=== PATIENT | male | born 1950 | race Caucasian/White ===

== ENCOUNTER 2020-08-25 15:29 | Inpatient (IN) ==
[2020-08-26] MEDS ORDERED: Albuterol 2.5 MG/3 ML NEBULIZER AER PRN (20:09)
[2020-08-26] MEDS ORDERED: Ipratropium/Albuterol Neb 3 ML IH PRN (20:09)
[2020-08-26] MEDS ORDERED: Dextrose Gel 15 GM/37.5 ML TUBE PO PRN ×2 (20:11)
[2020-08-26] MEDS ORDERED: D5% in Water 1,000 ML IVC PRN (20:11)
[2020-08-26] MEDS ORDERED: *HR* Dextrose 50 % in Water (Vial) 50 ML VIAL IVP PRN (20:11)
[2020-08-26] MEDS ORDERED: Mirtazapine 15 MG TABLET PO SCH (21:00)
[2020-08-26] MEDS: Ipratropium/Albuterol Neb 3 ML IH SCH (21:14)
[2020-08-26] MEDS: Budesonide/Formoterol 160/4.5 1 PUFF INH IH SCH (21:26)
[2020-08-26] MEDS: Benzonatate 100 MG CAPSULE PO SCH (22:28)
[2020-08-26] MEDS: Insulin LISPRO 300 UNITS/3 ML VIAL SUBQ SCH (22:30)
[2020-08-27] MEDS: Chloraseptic Spray 177 ML BOTTLE MM PRN (00:50)
[2020-08-27 06:09] LABS: Basophils % 0.1 %; Eosinophils % 0.1 %; Hematocrit 24.2 % (35.3-44.9); Hemoglobin 7.8 g/dL (11.5-15.4); Immature Granulocytes % 4.3 % (0-4); Lymphocytes % 0.4 %; Mean Corpuscular HGB Conc 32.2 g/dL (31.6-35.5); Mean Corpuscular Hemoglobin 28.8 pg (28.0-33.3); Mean Corpuscular Volume 89.3 fL (83.0-100.0); Mean Platelet Volume 11.5 fL (9.4-12.4); Monocytes # 0.2 K/mcL (0.0-1.3); Monocytes % 2.5 %; Platelet Count 159 K/mcL (140-400); Red Blood Count 2.71 M/mcL (3.82-4.97); Segmented Neutrophils % 92.6 %; White Blood Count 9.7 K/mcL (4.3-11.1)
[2020-08-27 06:34] LABS: Alanine Aminotransferase 18 Units/L (7-52); Albumin 2.5 g/dL (3.5-5.7); Albumin/Globulin Ratio 1.1 (1.1-2.2); Alkaline Phosphatase 66 Units/L (34-104); Aspartate Amino Transferase 9 Units/L (13-39); BUN/Creatinine Ratio 26 (6-26); Bilirubin,Total 0.4 mg/dL (0.3-1.0); Blood Urea Nitrogen 21 mg/dL (8-23); Calcium 9.3 mg/dL (8.6-10.3); Carbon Dioxide 25 mEq/L (23-29); Chloride 99 mEq/L (98-107); Globulin 2.3 g/dL (2.4-3.5); Glucose 164 mg/dL (70-105); Osmolality,Calculated 277 (280-300); Potassium 4.4 mEq/L (3.5-5.1); Sodium 130 mEq/L (136-145); Total Protein 4.8 g/dL (6.4-8.9); eGFR For African Americans > 60 (> 60); eGFR For Non-African Americans > 60 (> 60)
[2020-08-27] MEDS: *HR* Enoxaparin 40 MG/0.4 ML SYRINGE SQ SCH (06:55)
[2020-08-27] MEDS: Insulin LISPRO 300 UNITS/3 ML VIAL SUBQ SCH ×4 (08:22→21:42)
[2020-08-27] MEDS: Aspirin Enteric Coated 81 MG Tablet PO SCH (08:24)
[2020-08-27] MEDS: Ascorbic Acid 500 MG TABLET PO SCH (08:24)
[2020-08-27] MEDS: Benzonatate 100 MG CAPSULE PO SCH ×3 (08:25→20:01)
[2020-08-27] MEDS: polyethylene glycoL 3350 17 GM POWD.PACK PO SCH (08:25)
[2020-08-27] MEDS: allopurinoL 300 MG TABLET PO SCH (08:25)
[2020-08-27] MEDS: Folic Acid 1 MG TABLET PO SCH (08:25)
[2020-08-27] MEDS: Sennosides/Docusate Sodium TABLET PO SCH (08:25)
[2020-08-27] MEDS: Budesonide/Formoterol 160/4.5 1 PUFF INH IH SCH ×2 (08:25→22:00)
[2020-08-27] MEDS: predniSONE 20 MG TABLET PO SCH (08:25)
[2020-08-27] MEDS: Cyanocobalamin (B-12) 1,000 MCG TABLET PO SCH (08:25)
[2020-08-27] MEDS: Iron Polysaccharide Complex 150 MG CAPSULE PO SCH (08:25)
[2020-08-27] MEDS: Ipratropium/Albuterol Neb 3 ML IH SCH (08:37)
[2020-08-27] MEDS ORDERED: GlipiZIDE 5 MG TABLET PO SCH (09:00)
[2020-08-27] MEDS ORDERED: calcitrioL 0.25 MCG CAPSULE PO SCH (09:00)
[2020-08-27] MEDS ORDERED: Metoprolol XL (24 HR) Succ 50 MG TAB.ER.24H PO SCH (09:00)
[2020-08-27] MEDS ORDERED: DilTIAZem CD (24hr) 120 MG CAP.ER.24H PO SCH (09:00)
[2020-08-27] MEDS: Spironolactone 25 MG TABLET PO SCH (16:19)
[2020-08-27] MEDS ORDERED: lisinopriL 20 MG TABLET PO SCH (18:00)
[2020-08-27 19:38] LABS: Adenovirus Not Detected (Not Detect); Coronavirus 229E Not Detected (Not Detect); Coronavirus HKU1 Not Detected (Not Detect); Coronavirus NL63 Not Detected (Not Detect); Coronavirus OC43 Not Detected (Not Detect); Human Metapneumovirus Not Detected (Not Detect); Human Rhinovirus/Enterovirus Not Detected (Not Detect); Influenza A Subtype 2009 H1 Not Detected (Not Detect); Influenza B Not Detected (Not Detect); Parainfluenza Virus 1 Not Detected (Not Detect); Parainfluenza Virus 2 Not Detected (Not Detect); Parainfluenza Virus 3 Not Detected (Not Detect); Parainfluenza Virus 4 Not Detected (Not Detect)
[2020-08-27 19:39] LABS: Bordetella Pertussis Not Detected (Not Detect); Chlamydophila pneumoniae Not Detected (Not Detect); Mycoplasma pneumoniae Not Detected (Not Detect); Respiratory Syncytial Virus Not Detected (Not Detect)
[2020-08-27 19:41] LABS: SARS-CoV-2 DETECTED (Not Detect)
[2020-08-27] MEDS: Menthol 1 EACH LOZENGE PO PRN ×2 (20:00→22:23)
[2020-08-27 21:14] LABS: Estimated Average Glucose 192 mg/dl; Hemoglobin A1C 8.3 %
[2020-08-27] MEDS: traZODone 50 MG TABLET PO SCH (21:46)
[2020-08-28] MEDS: Menthol 1 EACH LOZENGE PO PRN ×3 (02:36→20:44)
[2020-08-28] MEDS: *HR* Enoxaparin 40 MG/0.4 ML SYRINGE SQ SCH (05:58)
[2020-08-28] MEDS: Insulin LISPRO 300 UNITS/3 ML VIAL SUBQ SCH ×4 (08:05→20:43)
[2020-08-28] MEDS: predniSONE 20 MG TABLET PO SCH (08:25)
[2020-08-28] MEDS: Ascorbic Acid 500 MG TABLET PO SCH (08:26)
[2020-08-28] MEDS: Aspirin Enteric Coated 81 MG Tablet PO SCH (08:26)
[2020-08-28] MEDS: polyethylene glycoL 3350 17 GM POWD.PACK PO SCH (08:26)
[2020-08-28] MEDS: Sennosides/Docusate Sodium TABLET PO SCH ×3 (08:26→20:56)
[2020-08-28] MEDS: allopurinoL 300 MG TABLET PO SCH (08:27)
[2020-08-28] MEDS: Benzonatate 100 MG CAPSULE PO SCH ×3 (08:27→20:43)
[2020-08-28] MEDS: Folic Acid 1 MG TABLET PO SCH (08:28)
[2020-08-28] MEDS: DilTIAZem CD (24hr) 120 MG CAP.ER.24H PO SCH (08:28)
[2020-08-28] MEDS: Iron Polysaccharide Complex 150 MG CAPSULE PO SCH (08:28)
[2020-08-28] MEDS: Cyanocobalamin (B-12) 1,000 MCG TABLET PO SCH (08:28)
[2020-08-28] MEDS ORDERED: Metoprolol XL (24 HR) Succ 50 MG TAB.ER.24H PO SCH (09:00)
[2020-08-28] MEDS: Budesonide/Formoterol 160/4.5 1 PUFF INH IH SCH ×2 (10:23→21:37)
[2020-08-28] MEDS: Spironolactone 25 MG TABLET PO SCH (16:26)
[2020-08-28] MEDS: traZODone 50 MG TABLET PO SCH (20:43)
[2020-08-28] MEDS: Chloraseptic Spray 177 ML BOTTLE MM PRN (20:44)
[2020-08-29] MEDS: *HR* Enoxaparin 40 MG/0.4 ML SYRINGE SQ SCH (04:08)
[2020-08-29] MEDS: Insulin LISPRO 300 UNITS/3 ML VIAL SUBQ SCH ×4 (08:25→21:51)
[2020-08-29] MEDS: DilTIAZem CD (24hr) 120 MG CAP.ER.24H PO SCH (08:26)
[2020-08-29] MEDS: Aspirin Enteric Coated 81 MG Tablet PO SCH (08:26)
[2020-08-29] MEDS: Folic Acid 1 MG TABLET PO SCH (08:26)
[2020-08-29] MEDS: Ascorbic Acid 500 MG TABLET PO SCH (08:27)
[2020-08-29] MEDS: Sennosides/Docusate Sodium TABLET PO SCH ×3 (08:27→22:21)
[2020-08-29] MEDS: Benzonatate 100 MG CAPSULE PO SCH ×3 (08:27→21:55)
[2020-08-29] MEDS: Iron Polysaccharide Complex 150 MG CAPSULE PO SCH (08:27)
[2020-08-29] MEDS: allopurinoL 300 MG TABLET PO SCH (08:27)
[2020-08-29] MEDS: Cyanocobalamin (B-12) 1,000 MCG TABLET PO SCH (08:27)
[2020-08-29] MEDS: predniSONE 20 MG TABLET PO SCH (08:27)
[2020-08-29] MEDS: Sulfamethoxazole/Trimeth DS 1 EACH TABLET PO SCH (08:30)
[2020-08-29] MEDS: Budesonide/Formoterol 160/4.5 1 PUFF INH IH SCH ×2 (08:50→21:41)
[2020-08-29] MEDS ORDERED: Insulin DETEMIR 100 UNIT/ML X5UNITS SUBQ SCH ×2 (09:00→21:00)
[2020-08-29] MEDS ORDERED: Insulin DETEMIR 100 UNIT/ML per UNIT SUBQ ONE (09:30)
[2020-08-29 11:31] LABS: Hematocrit 23.1 % (37.5-50.1); Hemoglobin 7.3 g/dL (12.9-16.9); Mean Corpuscular HGB Conc 31.6 g/dL (31.6-35.5); Mean Corpuscular Hemoglobin 28.9 pg (28.0-33.3); Mean Corpuscular Volume 91.3 fL (83.0-100.0); Platelet Count 148 K/mcL (140-400); Red Blood Count 2.53 M/mcL (4.19-5.50); Red Cell Distribution Width 15.2 % (11.5-14.5); White Blood Count 10.6 K/mcL (4.3-11.1)
[2020-08-29 11:42] LABS: VBG HCO3 26 mEq/L (21-27); VBG PCO2 42 mmHg (41-51); VBG PO2 56 mmHg (25-50)
[2020-08-29 11:44] LABS: BUN/Creatinine Ratio 27 (6-26); Blood Urea Nitrogen 24 mg/dL (8-23); Calcium 9.3 mg/dL (8.6-10.3); Carbon Dioxide 26 mEq/L (23-29); Chloride 101 mEq/L (98-107); Glucose 151 mg/dL (70-105); Osmolality,Calculated 283 (280-300); Potassium 4.5 mEq/L (3.5-5.1); Sodium 133 mEq/L (136-145); eGFR For African Americans > 60 (> 60); eGFR For Non-African Americans > 60 (> 60)
[2020-08-29] MEDS ORDERED: Ipratropium/Albuterol Neb 3 ML ONE (12:15)
[2020-08-29] MEDS ORDERED: Albuterol 2.5 MG/3 ML NEBULIZER ONE (12:15)
[2020-08-29] MEDS ORDERED: Ipratropium/Albuterol Neb 3 ML IH ONE (12:18)
[2020-08-29] MEDS ORDERED: Albuterol 2.5 MG/3 ML NEBULIZER IH ONE (12:18)
[2020-08-29] MEDS ORDERED: 0.9 % Sodium Chloride 250 ML IVC ONE (16:06)
[2020-08-29] MEDS ORDERED: 0.9 % Sodium Chloride 1,000 ML IVC SCH (16:15)
[2020-08-29] MEDS: MethylPREDNISolone 40 MG/ML VIAL IVP SCH ×2 (16:20→23:42)
[2020-08-29] MEDS: Ipratropium/Albuterol Neb 3 ML IH SCH ×2 (16:24→21:41)
[2020-08-29 19:41] LABS: C-Reactive Protein 60 mg/L (Less than 10)
[2020-08-29 19:56] LABS: Ferritin > 1500 ng/mL (20-250)
[2020-08-29] MEDS: Insulin DETEMIR 100 UNIT/ML X5UNITS SUBQ SCH (21:55)
[2020-08-29] MEDS: traZODone 50 MG TABLET PO SCH (21:55)
[2020-08-29] MEDS: Menthol 1 EACH LOZENGE PO PRN (21:56)
[2020-08-29] MEDS: Chloraseptic Spray 177 ML BOTTLE MM PRN (21:56)
[2020-08-29] MEDS: Cefepime HCl 1,000 MG in 0.9 % Sodium Chloride Mini Bag 100 ML IVPB SCH (23:43)
[2020-08-30] MEDS: Ipratropium/Albuterol Neb 3 ML IH SCH ×3 (00:35→08:16)
[2020-08-30] MEDS: MethylPREDNISolone 40 MG/ML VIAL IVP SCH ×3 (04:17→17:30)
[2020-08-30] MEDS: *HR* Enoxaparin 40 MG/0.4 ML SYRINGE SQ SCH (04:18)
[2020-08-30 04:49] LABS: Hematocrit 20.7 % (37.5-50.1); Hemoglobin 6.5 g/dL (12.9-16.9); Immature Granulocytes % 8.1 % (0-4); Lymphocytes % 0.6 %; Mean Corpuscular HGB Conc 31.4 g/dL (31.6-35.5); Mean Corpuscular Hemoglobin 28.3 pg (28.0-33.3); Mean Platelet Volume 11.6 fL (9.4-12.4); Monocytes # 0.1 K/mcL (0.0-1.3); Monocytes % 1.3 %; Neutrophils # 4.9 K/mcL (1.6-8.9); Platelet Count 129 K/mcL (140-400); Red Cell Distribution Width 14.9 % (11.5-14.5); White Blood Count 5.4 K/mcL (4.3-11.1)
[2020-08-30 05:00] LABS: BUN/Creatinine Ratio 24 (6-26); Blood Urea Nitrogen 24 mg/dL (8-23); Calcium 8.8 mg/dL (8.6-10.3); Carbon Dioxide 25 mEq/L (23-29); Chloride 101 mEq/L (98-107); Glucose 258 mg/dL (70-105); Osmolality,Calculated 285 (280-300); Sodium 131 mEq/L (136-145); eGFR For African Americans > 60 (> 60); eGFR For Non-African Americans > 60 (> 60)
[2020-08-30 05:18] LABS: Platelet Estimate Slight Decrease (Normal)
[2020-08-30] MEDS ORDERED: 0.9 % Sodium Chloride 250 ML ONE (06:53)
[2020-08-30] MEDS: Budesonide/Formoterol 160/4.5 1 PUFF INH IH SCH ×2 (08:04→19:47)
[2020-08-30] MEDS: Sennosides/Docusate Sodium TABLET PO SCH ×2 (08:38→20:13)
[2020-08-30] MEDS: Benzonatate 100 MG CAPSULE PO SCH ×3 (08:38→20:13)
[2020-08-30] MEDS: Folic Acid 1 MG TABLET PO SCH (08:38)
[2020-08-30] MEDS: Iron Polysaccharide Complex 150 MG CAPSULE PO SCH (08:38)
[2020-08-30] MEDS: allopurinoL 300 MG TABLET PO SCH (08:38)
[2020-08-30] MEDS: Aspirin Enteric Coated 81 MG Tablet PO SCH (08:38)
[2020-08-30] MEDS: Ascorbic Acid 500 MG TABLET PO SCH (08:38)
[2020-08-30] MEDS: Cyanocobalamin (B-12) 1,000 MCG TABLET PO SCH (08:38)
[2020-08-30] MEDS: Insulin LISPRO 300 UNITS/3 ML VIAL SUBQ SCH ×4 (08:41→20:21)
[2020-08-30] MEDS: DilTIAZem SR (12hr) 90 MG CAP.ER.12H PO SCH (08:43)
[2020-08-30] MEDS: Insulin DETEMIR 100 UNIT/ML X5UNITS SUBQ SCH ×2 (08:44→20:29)
[2020-08-30] MEDS: Cefepime HCl 1,000 MG in 0.9 % Sodium Chloride Mini Bag 100 ML IVPB SCH ×3 (10:08→20:15)
[2020-08-30] MEDS: 0.9 % Sodium Chloride 1,000 ML IVC SCH ×2 (10:09→10:10)
[2020-08-30 14:14] LABS: Hematocrit 21.8 % (37.5-50.1); Mean Corpuscular HGB Conc 32.1 g/dL (31.6-35.5); Mean Corpuscular Hemoglobin 28.8 pg (28.0-33.3); Mean Corpuscular Volume 89.7 fL (83.0-100.0); Mean Platelet Volume 11.2 fL (9.4-12.4); Platelet Count 131 K/mcL (140-400); Red Blood Count 2.43 M/mcL (4.19-5.50); Red Cell Distribution Width 14.8 % (11.5-14.5); White Blood Count 9.3 K/mcL (4.3-11.1)
[2020-08-30 14:36] LABS: BUN/Creatinine Ratio 28 (6-26); Blood Urea Nitrogen 26 mg/dL (8-23); Calcium 8.8 mg/dL (8.6-10.3); Carbon Dioxide 25 mEq/L (23-29); Chloride 102 mEq/L (98-107); Glucose 207 mg/dL (70-105); Magnesium 1.8 mg/dL (1.6-2.6); Osmolality,Calculated 283 (280-300); Potassium 4.7 mEq/L (3.5-5.1); Sodium 131 mEq/L (136-145); eGFR For African Americans > 60 (> 60); eGFR For Non-African Americans > 60 (> 60)
[2020-08-30] MEDS ORDERED: Famotidine 20 MG TABLET PO ONE (18:27)
[2020-08-30] MEDS ORDERED: Mag Hydrox/Al Hydrox/Simeth 30 ML UDC PO PRN (18:28)
[2020-08-30 19:19] LABS: % Iron Saturation 24 % (20-55); Iron 46 mcg/dL (65-175); Transferrin 136 mg/dL (203-362)
[2020-08-30 19:40] LABS: Folate 19.4 ng/mL (3.0-16.0)
[2020-08-30 19:49] LABS: Vitamin B12 > 1500 pg/mL (250-1100)
[2020-08-30] MEDS: traZODone 50 MG TABLET PO SCH (20:14)
[2020-08-31] MEDS: MethylPREDNISolone 40 MG/ML VIAL IVP SCH ×5 (00:21→23:28)
[2020-08-31] MEDS: Cefepime HCl 1,000 MG in 0.9 % Sodium Chloride Mini Bag 100 ML IVPB SCH ×3 (04:29→20:32)
[2020-08-31 05:29] LABS: Hematocrit 23.5 % (37.5-50.1); Hemoglobin 7.6 g/dL (12.9-16.9); Mean Corpuscular HGB Conc 32.3 g/dL (31.6-35.5); Mean Corpuscular Hemoglobin 29.1 pg (28.0-33.3); Mean Platelet Volume 10.8 fL (9.4-12.4); Platelet Count 137 K/mcL (140-400); Red Blood Count 2.61 M/mcL (4.19-5.50); Red Cell Distribution Width 14.9 % (11.5-14.5); White Blood Count 8.6 K/mcL (4.3-11.1)
[2020-08-31] MEDS: *HR* Enoxaparin 40 MG/0.4 ML SYRINGE SQ SCH (05:35)
[2020-08-31 05:46] LABS: BUN/Creatinine Ratio 26 (6-26); Blood Urea Nitrogen 24 mg/dL (8-23); Carbon Dioxide 24 mEq/L (23-29); Chloride 102 mEq/L (98-107); Glucose 204 mg/dL (70-105); Osmolality,Calculated 280 (280-300); Potassium 5.1 mEq/L (3.5-5.1); Sodium 130 mEq/L (136-145); eGFR For African Americans > 60 (> 60); eGFR For Non-African Americans > 60 (> 60)
[2020-08-31] MEDS: Menthol 1 EACH LOZENGE PO PRN (05:58)
[2020-08-31] MEDS: Budesonide/Formoterol 160/4.5 1 PUFF INH IH SCH ×2 (06:29→19:04)
[2020-08-31] MEDS ORDERED: Famotidine 20 MG TABLET PO SCH (09:00)
[2020-08-31] MEDS: Benzonatate 100 MG CAPSULE PO SCH ×3 (09:55→20:33)
[2020-08-31] MEDS: Iron Polysaccharide Complex 150 MG CAPSULE PO SCH (09:55)
[2020-08-31] MEDS: Aspirin Enteric Coated 81 MG Tablet PO SCH (09:55)
[2020-08-31] MEDS: Ascorbic Acid 500 MG TABLET PO SCH (09:56)
[2020-08-31] MEDS: Sennosides/Docusate Sodium TABLET PO SCH ×2 (09:56→20:33)
[2020-08-31] MEDS: Cyanocobalamin (B-12) 1,000 MCG TABLET PO SCH (09:56)
[2020-08-31] MEDS: allopurinoL 300 MG TABLET PO SCH (09:56)
[2020-08-31] MEDS: Folic Acid 1 MG TABLET PO SCH (09:56)
[2020-08-31] MEDS: DilTIAZem SR (12hr) 90 MG CAP.ER.12H PO SCH ×2 (09:57→11:59)
[2020-08-31] MEDS: Sulfamethoxazole/Trimeth DS 1 EACH TABLET PO SCH (10:04)
[2020-08-31] MEDS: Insulin LISPRO 300 UNITS/3 ML VIAL SUBQ SCH ×4 (10:04→20:34)
[2020-08-31] MEDS: Insulin DETEMIR 100 UNIT/ML X5UNITS SUBQ SCH ×2 (10:05→20:34)
[2020-08-31] MEDS: traZODone 50 MG TABLET PO SCH (20:33)
[2020-09-01] MEDS: Cefepime HCl 1,000 MG in 0.9 % Sodium Chloride Mini Bag 100 ML IVPB SCH ×2 (04:33→13:50)
[2020-09-01] MEDS: MethylPREDNISolone 40 MG/ML VIAL IVP SCH (05:11)
[2020-09-01] MEDS: *HR* Enoxaparin 40 MG/0.4 ML SYRINGE SQ SCH (05:12)
[2020-09-01 05:57] LABS: Hematocrit 22.5 % (37.5-50.1); Hemoglobin 7.1 g/dL (12.9-16.9); Mean Corpuscular HGB Conc 31.6 g/dL (31.6-35.5); Mean Corpuscular Hemoglobin 28.3 pg (28.0-33.3); Mean Corpuscular Volume 89.6 fL (83.0-100.0); Mean Platelet Volume 11.2 fL (9.4-12.4); Platelet Count 126 K/mcL (140-400); Red Blood Count 2.51 M/mcL (4.19-5.50); Red Cell Distribution Width 14.8 % (11.5-14.5); White Blood Count 6.6 K/mcL (4.3-11.1)
[2020-09-01 06:15] LABS: BUN/Creatinine Ratio 41 (6-26); Blood Urea Nitrogen 35 mg/dL (8-23); Carbon Dioxide 23 mEq/L (23-29); Chloride 103 mEq/L (98-107); Glucose 157 mg/dL (70-105); Magnesium 2.1 mg/dL (1.6-2.6); Osmolality,Calculated 277 (280-300); Potassium 5.2 mEq/L (3.5-5.1); Sodium 128 mEq/L (136-145); eGFR For African Americans > 60 (> 60); eGFR For Non-African Americans > 60 (> 60)
[2020-09-01] MEDS: Budesonide/Formoterol 160/4.5 1 PUFF INH IH SCH (06:37)
[2020-09-01] MEDS: Cyanocobalamin (B-12) 1,000 MCG TABLET PO SCH (08:12)
[2020-09-01] MEDS: Ascorbic Acid 500 MG TABLET PO SCH (08:12)
[2020-09-01] MEDS: Aspirin Enteric Coated 81 MG Tablet PO SCH (08:12)
[2020-09-01] MEDS: allopurinoL 300 MG TABLET PO SCH (08:12)
[2020-09-01] MEDS: Benzonatate 100 MG CAPSULE PO SCH ×2 (08:13→13:52)
[2020-09-01] MEDS: DilTIAZem SR (12hr) 90 MG CAP.ER.12H PO SCH (08:13)
[2020-09-01] MEDS: Insulin LISPRO 300 UNITS/3 ML VIAL SUBQ SCH ×2 (08:40→12:44)
[2020-09-01] MEDS: Folic Acid 1 MG TABLET PO SCH (08:42)
[2020-09-01] MEDS: Sennosides/Docusate Sodium TABLET PO SCH (08:43)
[2020-09-01] MEDS: Iron Polysaccharide Complex 150 MG CAPSULE PO SCH (08:55)
[2020-09-01 09:30] LABS: Bilirubin,Urine Negative (Negative); Blood,Urine Negative (Negative); Clarity,Urine Clear (Clear); Glucose,Urine (UA) Normal (Normal); Ketones,Urine Negative (Negative); Leukocyte Esterase,Urine Negative (Negative); Nitrite,Urine Negative (Negative); PH,Urine 6.5 pH Units (5.0-8.0); Protein,Urine Negative (Neg-Trace); Urobilinogen,Urine Normal (Normal)
[2020-09-01 09:31] LABS: Color,Urine Yellow (Yellow)
[2020-09-01] MEDS: Insulin DETEMIR 100 UNIT/ML X5UNITS SUBQ SCH (11:31)
[2020-09-01] MEDS ORDERED: 0.9 % Sodium Chloride 250 ML ONE (11:49)
[2020-09-01 15:34] VITALS: BP 86/55
[2020-09-01] MEDS ORDERED: MethylPREDNISolone 40 MG/ML VIAL IVP SCH (16:00)
== END 2020-09-01 16:08 | disposition short-term general hospital (02) | DRG 177 ==
LOC: INPGRE 08-26 20:02
PROVIDERS: ADMIT Family Medicine; ATTEND Family Medicine